=== PATIENT | male | born 1950 | race Two or more races ===

== ENCOUNTER 2016-10-29 18:51 | Inpatient (IN) | payer MEDICARE, MEDICAID ==
[~2016-10-29] VITALS: Ht 165.1 cm; Wt 61.2 kg
[2016-10-29] MEDS ORDERED: METF500T7 PO (19:06)
--- NOTE | 2016-10-29 19:30 | NUR ---
RN OPENING NOTES: RECEIVED PT FROM [facility] ER, IN FRO BRADYCARDIA AND DIZZINESS. PATIENT AWAKE ALERT AND ORIENTED NOT IN APPARENT DISTRESS ON ROOM AIR. PATIENT IS AN SW[place]ISH/ [place] SPEAKER BUT ABLE TO CONVERSE IN BASIC [place]. 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 NO COMPLAINTS OF CHEST PAIN OR DISCOMFORT. NO COMPLAINTS OF DIZZINESS AT THIS TIME. PATIENT ABLE TO AMBULATE TO THE BATHROOM WITH STEADY GAIT. WITH IV ACCESS ON LEFT AC G20,KEPT SL AT THIS TIME. SON RAQUEL ARRIVED, ABLE TO TRANSLATE FOR PATIENT. TO BE UPDATED. SAFETY MEASURES ENSURED. CALL LIGHT WITHIN REACH. AWAITING FOR ADMISSION ORDERS.
[2016-10-29 20:00] VITALS: BP 130/65
[2016-10-29] MEDS ORDERED: IV NS 0.9% 1,000 ML IV PRN (21:26)
[2016-10-29] MEDS ORDERED: ONDANSETRON HCL/PF 4 MG/2 ML VIAL IVP PRN (21:30)
[2016-10-29] MEDS ORDERED: ACETAMINOPHEN 325 MG TABLET PO PRN (21:30)
[2016-10-29] MEDS: ENOXAPARIN SODIUM 40 MG/0.4 ML DISP.SYRIN SQ SCH ×2 (21:30→22:10)
--- NOTE | 2016-10-29 22:00 | NUR ---
RN NOTES: PATIENT REFUSING LOVENOX. EXPLAINED BENEFITS AND RISKS OF NOT TAKIN LOVENOX BUT PATIENT STILL REFUSING. CONCEDED TO PATIENT'S DECISION AT THIS TIME.
[2016-10-29] MEDS ORDERED: ENOXAPARIN SODIUM 40 MG/0.4 ML DISP.SYRIN SQ ONE (22:04)
[2016-10-30] VITALS: BP_SYST 121; BP_SYST 129; BP_SYST 132; BP_DIAS 62; BP_DIAS 67; BP_DIAS 68
[2016-10-30 04:00] VITALS: BP 113/56
[2016-10-30 05:08] LABS: BASOPHILS % (AUTO) 0.4 % (0.0-2.0); EOSINOPHILS # (AUTO) 0.2 /CMM (0.0-0.7); EOSINOPHILS % (AUTO) 3.1 % (0.0-6.0); HEMATOCRIT 38 % (39-51); HEMOGLOBIN 12.7 g/dL (13.5-17.5); LYMPHOCYTES # (AUTO) 1.8 /CMM (0.8-4.8); LYMPHOCYTES % (AUTO) 34.9 % (20.0-44.0); MEAN CORPUSCULAR HEMOGLOBIN 29 PG (26.0-33.0); MEAN CORPUSCULAR HGB CONC 34 g/dl (31.0-36.0); MEAN CORPUSCULAR VOLUME 87 fL (80-96); MONOCYTES # (AUTO) 0.6 /CMM (0.1-1.30); MONOCYTES % (AUTO) 10.9 % (2.0-12.0); NEUTROPHILS # (AUTO) 2.6 /CMM (1.8-8.9); NEUTROPHILS % (AUTO) 50.7 % (43.0-81.0); PLATELET COUNT (AUTO) 189 /CMM (150-450); RDW COEFFICIENT OF VARIATION 14.1 (11.5-15.0); RED BLOOD CELL COUNT(AUTO) 4.32 MIL/uL (4.5-6.0); WHITE BLOOD COUNT (AUTO) 5.2 K/uL (4.3-11.0)
[2016-10-30 05:20] LABS: BILIRUBIN,TOTAL 0.6 mg/dL (0.2-1.0); CALCIUM, SERUM 8.2 mg/dL (8.5-10.1); CREATININE 0.8 mg/dL (0.6-1.3); PHOSPHORUS 3.1 mg/dL (2.5-4.9)
[2016-10-30 05:28] LABS: THYROID STIMULATING HORMONE 1.858 uIU/mL (0.358-3.74)
--- NOTE | 2016-10-30 07:04 | NUR ---
RN CLOSING NOTES: PATIENT NOT IN DISTRESS AT THIS TIME. NO COMPLAINTS OF PAIN REMAINS BRADYCARDIC ON MONITOR AT 41 BPM. SAFETY MEASURES ENSURED. CALL LIGHT WITHIN REACH. ENDORSED TO AM SHIFT RN
--- NOTE | 2016-10-30 07:17 | NUR ---
RN NOTES RECEIVED PT FROM [facility] IN STABLE CONDITION, RESTING IN BED. A&OX3, NIGERIAN SPEAKING. ON ROOM AIR WITH NO SOB OR DISTRESS NOTED. SINUS NINI ON THE MONITOR HR 41, PT ASYMPTOMATIC. L AC 20 GAUGE IV SITE DRY AND INTACT IVF AT 75ML/HR. CALL LIGHT WITHIN REACH, SIDE RAILS UPX3, BED LOCKED AND IN LOWEST POSITION WILL CONT TO MONITOR.
[2016-10-30 08:00] VITALS: BP 105/53
[2016-10-30] MEDS ORDERED: METFORMIN XR 500 MG TAB.SR.24H PO SCH (09:00)
[2016-10-30] MEDS ORDERED: LOSARTAN POTASSIUM 50 MG TABLET PO SCH (10:00)
[2016-10-30] MEDS ORDERED: ASPIRIN 81 MG TAB.CHEW PO SCH (10:00)
[2016-10-30] MEDS ORDERED: ATORVASTATIN 10 MG TABLET PO SCH (10:00)
--- NOTE | 2016-10-30 10:00 | NUR ---
RN NOTES PER DR RAJAN IF PT 2D ECHO AND CAROTID STUDY OK PT CAN GO HOME TODAY
[2016-10-30] MEDS ORDERED: ASPI81TA2 PO (11:08)
[2016-10-30] MEDS ORDERED: ATOR10TA PO (11:08)
[2016-10-30] MEDS ORDERED: LOSA50TA3 PO (11:09)
[2016-10-30 12:00] VITALS: BP 123/62
--- NOTE | 2016-10-30 13:00 | NUR ---
RN NOTES PER DR RICH, 2D ECHO AND CAROTID RESULTS NORMAL.
--- NOTE | 2016-10-30 14:05 | NUR ---
RN NOTES PT DISCHARGED HOME BY [facility]ESH[facility] GARC[facility]A IN STABLE CONDITION.
== END 2016-10-30 14:14 | disposition home or self-care (01) | DRG 310 ==
LOC: TELE-TD 18:51 → TELE1 21:42
PROVIDERS: ADMIT Internal Medicine; ATTEND Internal Medicine
DX: R00.1 Bradycardia, unspecified (principal); E11.9 Type 2 diabetes mellitus without complications; Z87.891 Personal history of nicotine dependence; R42 Dizziness and giddiness; M54.89 Other dorsalgia
CPT/HCPCS: 36415; 80053-TC; 80061-TC; 82306; 82728-TC; 83540-TC; 83735-TC; 84100-TC; 84439-TC; 84443-TC; 84484-TC; 85025-TC; 93307-TC; 93880-TC; J1650; J7030

== ENCOUNTER 2018-02-09 08:24 | Outpatient (CLI) | payer MEDICARE, MEDICAID ==
[~2018-02-09 08:24] MED LIST: ASPI-1169 PO; ATOR10TA PO; LOSA50TA3 PO; METF500T7 PO
[2018-02-09 09:57] LABS: CALCIUM, SERUM 9.2 mg/dL (8.5-10.1); POTASSIUM 4.4 mmol/L (3.5-5.1)
[2018-02-09] MEDS ORDERED: IOHEXOL-350 100 ML VIAL IV ONE (10:15)
[2018-02-09] MEDS ORDERED: IV NS 0.9% 250 ML IV ONE (10:16)
[2018-02-09] MEDS ORDERED: CT SWABBABLE VALVE TRANS SET 1 EA INFUS.SET MC ONE (10:16)
== END 2018-02-09 23:59 | disposition home or self-care (01) ==
LOC: US 08:24
PROVIDERS: ATTEND Internal Medicine Interventional Cardiology
DX: I65.22 Occlusion and stenosis of left carotid artery (principal); I10 Essential (primary) hypertension; M89.9 Disorder of bone, unspecified
CPT/HCPCS: 36415; 70498; 76770; 80048; J7050; Q9967